=== PATIENT | female | born 1960 | race Caucasian/White ===

== ENCOUNTER 2023-04-18 08:23 | Day surgery (SDC) | payer OTHER ==
[2023-04-18] MEDS ORDERED: LACTATED RINGERS 1,000 ML IV ONE (08:56)
[2023-04-18 09:07] VITALS: RESP 16; TEMP 98
[2023-04-18 09:23] LABS: Glucose,Whole Blood 101 mg/dL (70-110)
[2023-04-18] MEDS ORDERED: LIDOCAINE 2% INJ 20 MG/ML (2 ML VIAL) ONE (09:31)
[2023-04-18] MEDS ORDERED: ETOMIDATE 2 MG/ML 10 ML VIAL ONE (09:31)
--- NOTE | 2023-04-18 09:33 | P.GSHP ---
History of Present Illness H&P Date: 04/18/23 Chief Complaint: Positive colon guard test Is a 62 female who underwent recent colon guard test. Patient's test was positive. She presents today for screening colonoscopy. Past Medical History Past Medical History: Osteoarthritis (OA), Seizure Disorder, Thyroid Disorder Additional Past Medical History / Comment(s): constipation, seasonal allergies, uses a walker due to arthritis. hx of hypoglycemia. gets dizzy at times when not eating. petit mal seizures - well controlled, pt cannot remember her last one. dx at 1yr old. History of Any Multi-Drug Resistant Organisms: None Reported Past Surgical History: Tubal Ligation Additional Past Surgical History / Comment(s): colonoscopy, thyroid removed Past Anesthesia/Blood Transfusion Reactions: No Reported Reaction Smoking Status: Never smoker - Past Family History Father Family Medical History: No Reported History Mother Family Medical History: Coronary Artery Disease (CAD) Additional Family Medical History / Comment(s): thyroid removed, Medications and Allergies Home Medications Medication Instructions Recorded Confirmed Type Alendronate Sodium 70 mg PO FR 04/16/23 04/18/23 History Cetirizine HCl 10 mg PO DAILY 04/16/23 04/18/23 History Levothyroxine Sodium [Synthroid] 75 mcg PO DAILY 04/16/23 04/18/23 History Loratadine 10 mg PO DAILY 04/16/23 04/18/23 History Meloxicam [Mobic] 15 mg PO DAILY 04/16/23 04/18/23 History OXcarbazepine 600 mg PO BID 04/16/23 04/18/23 History Unk B Complex 1 tab PO DAILY 04/16/23 04/18/23 History Unk Calcium Supp 1 tab PO DAILY 04/16/23 04/18/23 History Unk Multi Vitamin 1 tab PO DAILY 04/16/23 04/18/23 History Unk Vitamin C 1 tab PO DAILY 04/16/23 04/18/23 History Allergies Allergy/AdvReac Type Severity Reaction Status Date / Time gluten Allergy Nausea Verified 04/18/23 09:05 lactose Allergy Nausea Verified 04/18/23 09:05 egg whites Allergy Mild Dyspnea Uncoded 04/18/23 09:05 sugar Allergy migraines Uncoded 04/18/23 09:05 and dizziness Surgical - Exam Vital Signs Temp Pulse Resp BP Pulse Ox 98 F 90 16 149/71 97 04/18/23 09:06 04/18/23 09:06 04/18/23 09:06 04/18/23 09:06 04/18/23 09:06 - General well developed, well nourished, no distress - Eyes PERRL - ENT normal pinna - Neck no masses - Respiratory normal expansion - Cardiovascular Rhythm: regular - Abdomen Abdomen: soft, non tender Assessment and Plan Assessment: Positive colon guard test. We'll perform screening colonoscopy.
--- NOTE | 2023-04-18 09:48 | P.OP ---
Date of Procedure: 04/18/23 Preoperative Diagnosis: Positive colon guard test Screening colonoscopy Postoperative Diagnosis: Mild diverticulosis Procedure(s) Performed: Colonoscopy Anesthesia: MAC Surgeon: Jesus Funes Pathology: none sent Condition: stable Disposition: PACU Description of Procedure: The patient's placed on the endoscopy table in the lateral position. She received IV sedation. Digital rectal exam was performed. There a few external hemorrhoids noted. The flexible colonoscope was then placed patient anus and passed throughout the entire colon. The ileocecal valve was visualized. The cecum, ascending and transverse colon appeared normal. In the descending and; there is a few scattered diverticuli. The scope was then brought back the rectum and this appeared normal. Scope withdrawn for patient.
[2023-04-18 10:21] VITALS: BP 120/65; PULSE 83
== END 2023-04-18 10:34 | disposition home or self-care (01) ==
LOC: ORWHC2ENDO 08:23
PROVIDERS: ATTEND Surgery
DX: Z12.11 Encounter for screening for malignant neoplasm of colon (principal); K57.30 Diverticulosis of large intestine without perforation or abscess without bleeding; M19.90 Unspecified osteoarthritis, unspecified site; G40.909 Epilepsy, unspecified, not intractable, without status epilepticus; E07.9 Disorder of thyroid, unspecified; Z98.51 Tubal ligation status; Z79.899 Other long term (current) drug therapy; Z82.49 Family history of ischemic heart disease and other diseases of the circulatory system; Z79.890 Hormone replacement therapy; Z79.1 Long term (current) use of non-steroidal anti-inflammatories (NSAID); Z88.8 Allergy status to other drugs, medicaments and biological substances; Z91.018 Allergy to other foods
CPT/HCPCS: J2001; G0121; 45378

== ENCOUNTER → 2025-01-20 | Outpatient (CLI) | payer MEDICARE ==
--- NOTE | 2025-01-27 12:18 | MM ---
Reason for Exam: Screening (asymptomatic). Last mammogram was performed 3 year(s) and 0 month(s) ago. Patient History: Menarche at age 9. First Full-Term at age 20. Postmenopausal. Patient has history of breast feeding. Risk Values: Yessi 5 year model risk: 1.6%. NCI Lifetime model risk: 5.9%. Prior Study Comparison: 06/18/2019 Bilateral Diagnostic Mammogram, [facility]. 07/24/2022 Bilateral Screening Mammogram, [facility]. Tissue Density: The breasts are heterogeneously dense, which may obscure small masses. Findings: Analyzed By CAD. There is no suspicious group of microcalcifications or new suspicious mass in either breast. Chronic nodularity right breast. Overall Assessment: Benign, BI-RAD 2 Management: Screening Mammogram of both breasts in 1 year. . Patient should continue monthly self-breast exams. A clinical breast exam by your physician is recommended on an annual basis. This exam should not preclude additional follow-up of suspicious palpable abnormalities. Note on Yessi scores and lifetime risk: 1. A Yessi score greater than 3% is considered moderate risk. If this is the case, consider specialist referral to assess eligibility for a risk reducing agent. 2. If overall lifetime risk for the development of breast cancer is 20% or higher, the patient may qualify for future screening with alternating mammogram and breast MRI. [facility], , 01/27/2025 12:15 PM. Electronically signed and approved by: Aldo Jerez M.D. Radiologis
== END | disposition home or self-care (01) ==
LOC: RADMAMWWP 11:12
PROVIDERS: ATTEND Family Medicine
DX: Z12.31 Encounter for screening mammogram for malignant neoplasm of breast (principal); R92.333 Mammographic heterogeneous density, bilateral breasts; Z78.0 Asymptomatic menopausal state
CPT/HCPCS: 77063; 77067

== ENCOUNTER 2025-05-11 07:50 | Emergency (ER) | payer MEDICARE ==
[2025-05-11 07:56] VITALS: RESP 18; TEMP 98.1
--- NOTE | 2025-05-11 08:10 | ED ---
General Adult HPI - General Chief complaint: Extremity Problem,Nontraumatic Stated complaint: Right shoulder pain Time Seen by Provider: 05/11/25 07:54 Source: patient, RN notes reviewed, old records reviewed Mode of arrival: ambulatory Limitations: no limitations - History of Present Illness Initial comments: 64-year-old female presenting with right shoulder pain. Patient denies injury. She states she has had some issues with arthritis over the years. She states that over the past 24 hours this right shoulder has begun to hurt with any movement. Denies fever. Denies chest pain or difficulty breathing. Denies abdominal pain nausea or vomiting. - Related Data Home Medications Medication Instructions Recorded Confirmed Alendronate Sodium 70 mg PO FR 04/16/23 04/18/23 Cetirizine HCl 10 mg PO DAILY 04/16/23 04/18/23 Levothyroxine Sodium [Synthroid] 75 mcg PO DAILY 04/16/23 04/18/23 Loratadine 10 mg PO DAILY 04/16/23 04/18/23 Meloxicam [Mobic] 15 mg PO DAILY 04/16/23 04/18/23 OXcarbazepine 600 mg PO BID 04/16/23 04/18/23 Unk B Complex 1 tab PO DAILY 04/16/23 04/18/23 Unk Calcium Supp 1 tab PO DAILY 04/16/23 04/18/23 Unk Multi Vitamin 1 tab PO DAILY 04/16/23 04/18/23 Unk Vitamin C 1 tab PO DAILY 04/16/23 04/18/23 Allergies Allergy/AdvReac Type Severity Reaction Status Date / Time gluten Allergy Nausea Verified 05/11/25 07:56 lactose Allergy Nausea Verified 05/11/25 07:56 egg whites Allergy Mild Dyspnea Uncoded 05/11/25 07:56 sugar Allergy migraines Uncoded 05/11/25 07:56 and dizziness Review of Systems ROS Statement: Those systems with pertinent positive or pertinent negative responses have been documented in the HPI. ROS Other: All systems not noted in ROS Statement are negative. Past Medical History Past Medical History: Osteoarthritis (OA), Seizure Disorder, Thyroid Disorder Additional Past Medical History / Comment(s): constipation, seasonal allergies, uses a walker due to arthritis. hx of hypoglycemia. gets dizzy at times when not eating. petit mal seizures - well controlled, pt cannot remember her last one. dx at 1yr old. History of Any Multi-Drug Resistant Organisms: None Reported Past Surgical History: Tubal Ligation Additional Past Surgical History / Comment(s): colonoscopy, thyroid removed Past Anesthesia/Blood Transfusion Reactions: No Reported Reaction Past Psychological History: No Psychological Hx Reported Smoking Status: Never smoker Past Alcohol Use History: None Reported Past Drug Use History: None Reported - Past Family History Father Family Medical History: No Reported History Mother Family Medical History: Coronary Artery Disease (CAD) Additional Family Medical History / Comment(s): thyroid removed, General Exam Limitations: no limitations General appearance: alert, in no apparent distress Head exam: Present: atraumatic, normocephalic Eye exam: Present: normal appearance, PERRL ENT exam: Present: normal exam Neck exam: Present: normal inspection. Absent: tenderness, meningismus Respiratory exam: Present: normal lung sounds bilaterally. Absent: respiratory distress, wheezes Cardiovascular Exam: Present: regular rate, normal rhythm GI/Abdominal exam: Present: soft. Absent: distended, tenderness, guarding Extremities exam: Present: tenderness (Tenderness to palpation over the right shoulder), other (Right upper extremity, distal pulses intact, no swelling). Absent: full ROM (Decreased range of motion of the right shoulder secondary to pain, no overlying erythema) Neurological exam: Present: alert, oriented X3, CN II-XII intact. Absent: motor sensory deficit Psychiatric exam: Present: normal affect, normal mood Skin exam: Present: warm, dry, intact. Absent: cyanosis, diaphoretic Course Vital Signs 05/11/25 07:52 Temperature 98.1 F Pulse Rate 70 Respiratory 18 Rate Blood Pressure 133/79 O2 Sat by Pulse 99 Oximetry Medical Decision Making - Medical Decision Making Was pt. sent in by a medical professional or institution (, PA, SPECIAL EFFECTS DESIGNER, urgent care, hospital, or jail...) When possible be specific @ -No Did you speak to anyone other than the patient for history (EMS, parent, family, police, friend...)? What history was obtained from this source @ -No Did you review nursing and triage notes (agree or disagree)? Why? @ -I reviewed and agree with nursing and triage notes Were old charts reviewed (outside hosp., previous admission, EMS record, old EKG, old radiological studies, urgent care reports/EKG's, jail records)? Report findings @ -No old charts were reviewed Differential Musculoskeletal Muscular strain, contusion, ligament sprain, fracture, arthritis, septic arthritis, bursitis, cellulitis, muscle spasm, nerve compression, DVT, arterial occlusion, herpes zoster, electrolyte abnormality, tumor.... This is not meant to be in all inclusive list EKG interpreted by me (3pts min.). @ -As above X-rays interpreted by me (1pt min.). @X-ray of the right shoulder is negative for fracture or dislocation there is osteophyte formation. CT interpreted by me (1pt min.). @ -None done U/S interpreted by me (1pt. min.). @ -None done What testing was considered but not performed or refused? (CT, X-rays, U/S, labs)? Why? @ -None What meds were considered but not given or refused? Why? @ -None Did you discuss the management of the patient with other professionals (professionals i.e. , PA, SPECIAL EFFECTS DESIGNER, lab, RT, psych nurse, child protective services social worker, cardiovascular surgical tech, teacher, sheriffs officer, wrapper caser)? Give summary @ -No Was smoking cessation discussed for >3mins.? @ -No Was critical care preformed (if so, how long)? @ -No Were there social determinants of health that impacted care today? How? (Homelessness, low income, unemployed, alcoholism, drug addiction, transportation, low edu. Level, literacy, decrease access to med. care, group home, rehab)? @ -No Was there de-escalation of care discussed even if they declined (Discuss DNR or withdrawal of care, Hospice)? DNR status @ -No What co-morbidities impacted this encounter? (DM, HTN, Smoking, COPD, CAD, Cancer, CVA, ARF, Chemo, Hep., AIDS, mental health diagnosis, sleep apnea, morbid obesity)? @ -None Was patient admitted / discharged? Hospital course, mention meds given and route, prescriptions, significant lab abnormalities, going to OR and other pertinent info. @ -[64-year-old female presenting with right shoulder pain. Patient has no associated fever vomiting or abdominal pain. No chest pain or dyspnea. Pain does not radiate. Pain is worse with movement of the shoulder. Distal pulses are intact. X-ray is negative for displaced fracture or dislocation. There is some osteoarthritis and suggestion of previous dislocation. Patient will be placed in a sling and is instructed to follow closely with her primary care provider and may require orthopedic follow-up. Undiagnosed new problem with uncertain prognosis? @ -No Drug Therapy requiring intensive monitoring for toxicity (Heparin, Nitro, Insulin, Cardizem)? @ -No Were any procedures done? @ -No Diagnosis/symptom? @Shoulder pain Acute, or Chronic, or Acute on Chronic? @ -[Acute Uncomplicated (without systemic symptoms) or Complicated (systemic symptoms)? @ -Default Side effects of treatment? @ -No Exacerbation, Progression, or Severe Exacerbation? @ -No Poses a threat to life or bodily function? How? (Chest pain, USA, ID, pneumonia, PE, COPD, DKA, ARF, appy, cholecystitis, CVA, Diverticulitis, Homicidal, Suicidal, threat to staff... and all critical care pts) @ -No Disposition Clinical Impression: Shoulder pain Disposition: HOME SELF-CARE Condition: Fair Instructions (If sedation given, give patient instructions): Shoulder Pain (ED) Is patient prescribed a controlled substance at d/c from ED?: No Referrals: Tolu Mantilla MD [Primary Care Provider] - 1-2 days Berlin Weeks MD [STAFF PHYSICIAN] - 1-2 days Time of Disposition: 08:44
--- NOTE | 2025-05-11 08:39 | XR ---
EXAMINATION TYPE: XR shoulder complete RT DATE OF EXAM: 05/11/2025 8:33 AM COMPARISON: None CLINICAL INDICATION: Female, 64 years old with history of pain; PHH, pain TECHNIQUE: XR shoulder complete RT; examined in AP, internally rotated and scapular Y projections. FINDINGS: Calcified bone body projects just inferior to the glenoid measuring up to 4 mm. No evidence of acute osseous pathology, joint dislocation, or soft tissue swelling. The remaining portions of the visuali zed chest are unremarkable. Degeneration changes of the acromion, distal clavicle with osteophyte fo rmation. There is osteophyte formation of the glenoid and humeral head. There is joint space narrowin g of glenohumeral joint. IMPRESSION: 1. No acute osseous pathology. 2. Small bony body just inferior to the glenoid. Correlate for prior history of shoulder dislocation . Consider further evaluation with MRI. 3. Mild before meals and glenohumeral joint osteoporosis. [facility], , 05/11/2025 8:37 AM
[2025-05-11 09:11] VITALS: BP 121/80; PULSE 90
== END 2025-05-11 09:00 | disposition home or self-care (01) ==
LOC: EC 07:50
DX: M25.511 Pain in right shoulder (principal); Z91.018 Allergy to other foods; Z91.011 Allergy to milk products; Z91.012 Allergy to eggs
CPT/HCPCS: 99283